=== PATIENT | female | born 1950 | race Caucasian/White ===

== ENCOUNTER 2016-10-17 15:53 | Emergency (ER) | payer OTHER ==
--- NOTE | 2016-10-17 16:04 | CPEKG ---
Heart Rate: 76 RR Interval: 789 P-R Interval: 200 QRSD Interval: 76 QT Interval: 312 QTC Interval: 351 P [place]: 85 QRS [place]: 41 T Wave [place]: 57 EKG Severity - NORMAL ECG - EKG Impression: SINUS RHYTHM Electronically Signed By: Doug Tolentino 17-Oct-2016 23:43:31
[2016-10-17] MEDS ORDERED: ASPIRIN 81 MG CHEWABLE TAB PO ONE (16:09)
[2016-10-17] MEDS ORDERED: NS 1,000 ML IV ONE (16:09)
[2016-10-17 16:10] VITALS: TEMP 98.8
[2016-10-17] MEDS ORDERED: METOPROLOL TARTRATE 5 MG/5 ML INJ ONE (16:10)
[2016-10-17] MEDS ORDERED: METOPROLOL TARTRATE 5 MG/5 ML INJ IVP ONE (16:10)
[2016-10-17] MEDS ORDERED: ASPIRIN 81 MG CHEWABLE TAB ONE (16:10)
[2016-10-17 16:14] LABS: % IMMATURE GRANULYOCYTES 0.2 % (0.0-1.1); ABSOLUTE IMMATURE GRANULOCYTES 0.01 10^3/uL (0.00-0.10); ADD DIFF? NO; ADD MORPH? NO; ADD SCAN? NO; ATYPICAL LYMPHOCYTE FLAG 20 (0-99); FRAGMENT RBC FLAG 0 (0-99); HEMATOCRIT 42.7 % (38.0-47.0); HEMOGLOBIN 14.3 g/dL (12.6-16.3); LEFT SHIFT FLG 0 (0-99); LIPEMIA HEMOLYSIS FLAG 80 (0-99); MEAN CELL HEMOGLOBIN 28.2 pg (27.9-34.1); MEAN CELL HEMOGLOBIN CONCENTR. 33.5 g/dL (32.4-36.7); MEAN CELL VOLUME 84.2 fL (81.5-99.8); MEAN PLATELET VOLUME 10.6 fL (8.7-11.7); PLATELET CLUMPS FLAG 0 (0-99); PLATELET COUNT 235 10^3/uL (150-400); RED BLOOD CELL COUNT 5.07 10^6/uL (4.18-5.33); RED CELL DISTRIBUTION WIDTH 14.9 % (11.5-15.2)
--- NOTE | 2016-10-17 16:24 | UCPHY ---
H & P Patient Type: Established Chief Complaint Nursing Narrative: c/o chills, simon, muscles aches, sent by her MD for evaluation of elevated heart rate Time Seen by Provider: 10/17/16 16:08 HPI/ROS: Dr. Yun Oliva, patient's primary care physician called regarding this patient explaining that the patient presented to our office with flu-like symptoms was found to be tachycardic. An EKG was performed that showed AFib or flutter at a rate of 150. She converted spontaneously without intervention. However given that this has never occurred her before Dr. Yun Oliva center here for further evaluation. The patient relates that while visiting [facility] she developed chills on Saturday, 4 days prior to this visit to our urgent care associated with the mild sore throat and myalgias. She also had subjective fevers that diminished with Tylenol. She has associated nausea and mild headache-frontal location similar prior headaches as well. Finally, she reported a mild dry cough and a burning sensation when she coughed that felt bronchial her. Over the past 2 days she has developed associated fatigue. ROS: Fatigue and fever as noted in HPI. HEENT: No sinus pain. No ear pain. No other complaints pulmonary no pleuritic pain. No dyspnea. Cardiovascular: No anginal pain, she reports that she did noticed heart palpitations until Dr. Oliva mentioned her rapid rhythm at the office visit. She denies any calf pain or swelling.. GI: Nausea but no vomiting. No diarrhea. She is tolerating p.o. intake. : No complaints endocrine: No diaphoresis, heat intolerance cold intolerance. She has not had a TSH checked in some time now. Integumentary: No rash or other skin complaints. 10 point ROS is otherwise negative. Source: Patient, RN/MD Exam Limitations: No limitations (I received a phone call from Dr. Yun Oliva is patient's primary care physician regarding this patient) - Medical/Surgical History PMH: Hypercholesterolemia Hx Asthma: No Hx Chronic Respiratory Disease: No Hx Diabetes: No Hx Cardiac Disease: No Hx Renal Disease: No Hx Cirrhosis: No Hx Alcoholism: No Hx HIV/AIDS: No Hx Splenectomy or Spleen Trauma: No Other PMH: hypothyroid - Family History Significant Family History: Heart disease (Her mother of an OK in her 60s) - Social History Smoking Status: Never smoked Alcohol Use: Rarely Drug Use: None - Physical Exam Exam: Normal vital signs except for intermittent AFib or flutter with accompanied heart rate up to the 160s. Despite that she maintains a blood pressure with systolic greater than 100 General Appearance: Alert, no distress. Eyes: Pupils equal and round no pallor or injection. ENT, Mouth: Mucous membranes moist. Respiratory: Clear to auscultation with no rales rhonchi or wheeze. Cardiovascular: Regular rate and rhythm with intermittent irregularly irregular Gastrointestinal: Abdomen is soft and nontender, no masses, bowel sounds normal. Neurological: Alert with no focal deficits appreciated. Skin: Warm and dry, no rashes. Musculoskeletal: Neck is supple nontender. Extremities are symmetrical, full range of motion. No lower extremity tenderness or swelling. Psychiatric: Mood and affect normal. DIFFERENTIAL DIAGNOSIS: After history and physical exam differential diagnosis was considered for influenza or other viral illness, dehydration, paroxysmal AFib aflutter, rule out metabolic disarray, thyroid disease, pneumonia Constitutional: Initial Vital Signs Temperature (C) 37.1 C 10/17/16 16:08 Heart Rate 80 10/17/16 16:08 Respiratory Rate 20 10/17/16 16:08 Blood Pressure 106/81 H 10/17/16 16:08 O2 Sat (%) 95 10/17/16 16:08 O2 Delivery Mode Room Air O2 (L/minute) 2 Allergies/Adverse Reactions: No Known Allergies Allergy (Verified 07/05/12 12:35) Home Medications: Medication Instructions Recorded Levothyroxine Sodium [Levothroid] 25 mcg PO 07/05/12 Simvastatin 07/18/14 Levalbuterol Inhaler [Xopenex Hfa 2 puffs IH Q4 PRN #1 mdi 10/17/16 Inhaler] Myrbetriq 10/17/16 Medical Decision Making - Diagnostics EKG Interpretation: 12 lead EKG performed upon arrival at 4:01 p.m. reveals sinus rhythm indication heart palpitations Intervals: Normal throughout [place]: Normal throughout ST segments: Normal throughout Overall assessment normal EKG Heart monitor revealed intermittent rapid narrow complex rhythm that appears to be AFib or flutter. Ventricular rates up to 160 briefly I also reviewed EKG does performed the primary care physician's office timed at 3:14 p.m. and that EKG reveals a flutter by my interpretation with a rate of 150. No other abnormalities. Imaging: Chest x-ray: Minimal atelectasis at the base otherwise no interval change from June 2014 chest x-ray by my interpretation. Dr. Garcia, radiologist as that there is mild airway disease. CT angio chest rule out PE is negative for PE. Mild airway disease is noted per Dr. Villarreal-radiologist who read the CT. She also has mild nodules that are unchanged from prior study. ED Course/Re-evaluation: IV normal saline bolus Aspirin 324 Despite her intermittent brief rapid Neuro complex rhythms, the patient maintains normal mental status, good skin color and no hypotension. With saline bolus-1 L rhythm has converted to a sinus rhythm and remained in sinus rhythm for the duration of her urgent care observation-over 2 hours A review of labs shows a normal CBC, normal electrolytes normal TSH. Her D- dimer was mildly elevated. I spoke with Dr. Penaloza, -stuffed casing tier [employer] solution architect for [facility] in consult regarding this patient. Suggests holding on any AV moustapha blocking medications or other new meds for this patient given her stability the clinic after saline bolus. After workup, no evidence of pulmonary embolism, coronary syndrome or other complicating factors. Findings are consistent with a new onset of paroxysmal a flutter/fib in the setting of a viral bronchitis. I counseled the patient regarding this. She improved with treatment and is in a sinus rhythm - Data Points Laboratory Results: Laboratory Results 10/17/16 16:05 10/17/16 16:05 10/17/16 10/17/16 10/17/16 16:20 16:05 16:05 WBC RBC Hgb POC Hgb 15.3 gm/dL gm/dL (12.3-15.9) Hct POC Hct 45 % % (35.5-47.5) MCV MCH MCHC RDW Plt Count MPV Neut % (Auto) Lymph % (Auto) [place] % (Auto) Eos % (Auto) Baso % (Auto) Nucleat RBC Rel Count Absolute Neuts (auto) Absolute Lymphs (auto) Absolute Monos (auto) Absolute Eos (auto) Absolute Basos (auto) Absolute Nucleated RBC Immature Gran % Immature Gran # PT INR APTT D-Dimer POC Sodium 138 mEq/L mEq/L (134-144) Sodium POC Potassium 3.8 mEq/L mEq/L (3.3-5.0) Potassium POC Chloride 103 mEq/L mEq/L (96-108) Chloride Carbon Dioxide Anion Gap POC BUN 8 mg/dL mg/dL (7-23) BUN Creatinine POC Creatinine 0.8 mg/dL mg/dL (0.6-1.2) Estimated GFR Glucose POC Glucose 109 mg/dL H mg/dL (70-100) Calcium Troponin I TSH 1.180 uIU/mL uIU/mL (0.465-4.680) Influenza Typ A,B (DFA) NEGATIVE FOR FLU (NEGATIVE) 10/17/16 10/17/16 10/17/16 16:05 16:05 16:05 WBC 4.68 10^3/uL 10^3/uL (3.80-9.50) RBC 5.07 10^6/uL 10^6/uL (4.18-5.33) Hgb 14.3 g/dL g/dL (12.6-16.3) POC Hgb Hct 42.7 % % (38.0-47.0) POC Hct MCV 84.2 fL fL (81.5-99.8) MCH 28.2 pg pg (27.9-34.1) MCHC 33.5 g/dL g/dL (32.4-36.7) RDW 14.9 % % (11.5-15.2) Plt Count 235 10^3/uL 10^3/uL (150-400) MPV 10.6 fL fL (8.7-11.7) Neut % (Auto) 59.5 % % (39.3-74.2) Lymph % (Auto) 27.4 % % (15.0-45.0) [place] % (Auto) 10.9 % % (4.5-13.0) Eos % (Auto) 1.1 % % (0.6-7.6) Baso % (Auto) 0.9 % % (0.3-1.7) Nucleat RBC Rel Count 0.0 % % (0.0-0.2) Absolute Neuts (auto) 2.79 10^3/uL 10^3/uL (1.70-6.50) Absolute Lymphs (auto) 1.28 10^3/uL 10^3/uL (1.00-3.00) Absolute Monos (auto) 0.51 10^3/uL 10^3/uL (0.30-0.80) Absolute Eos (auto) 0.05 10^3/uL 10^3/uL (0.03-0.40) Absolute Basos (auto) 0.04 10^3/uL 10^3/uL (0.02-0.10) Absolute Nucleated RBC 0.00 10^3/uL 10^3/uL (0-0.01) Immature Gran % 0.2 % % (0.0-1.1) Immature Gran # 0.01 10^3/uL 10^3/uL (0.00-0.10) PT 12.2 SEC SEC (12.0-15.0) INR 0.93 (0.83-1.16) APTT 33.2 SEC SEC (23.0-38.0) D-Dimer 0.53 ug/mLFEU H ug/mLFEU (0.00-0.50) POC Sodium Sodium 137 mEq/L mEq/L (134-144) POC Potassium Potassium 4.0 mEq/L mEq/L (3.5-5.2) POC Chloride Chloride 102 mEq/L mEq/L (97-110) Carbon Dioxide 23 mEq/l mEq/l (22-31) Anion Gap 12 mEq/L mEq/L (8-16) POC BUN BUN 9 mg/dL mg/dL (7-23) Creatinine 0.8 mg/dL mg/dL (0.6-1.0) POC Creatinine Estimated GFR > 60 Glucose 107 mg/dL H mg/dL (70-100) POC Glucose Calcium 9.7 mg/dL mg/dL (8.5-10.4) Troponin I < 0.012 ng/mL ng/mL (0-0.034) TSH Cancelled Influenza Typ A,B (DFA) Medications Given: Discontinued Medications Aspirin (Aspirin) 324 mg PO EDNOW ONE Stop: 10/17/16 16:10 Last Admin: 10/17/16 16:15 Dose: 324 mg Sodium Chloride (Ns) 1,000 mls @ 0 mls/hr IV ONCE ONE PRN Reason: Wide Open Stop: 10/17/16 16:10 Last Admin: 10/17/16 16:05 Dose: 1,000 mls Metoprolol Tartrate (Lopressor Injection) 5 mg IVP EDNOW ONE Stop: 10/17/16 16:11 Last Admin: 10/17/16 19:28 Dose: Not Given Point of Care Test Results: 10/17/16 16:05 POC Sodium 138 POC Potassium 3.8 POC Chloride 103 POC BUN 8 POC Creatinine 0.8 POC Glucose 109 H Departure - Departure Disposition: Home, Routine, Self-Care Clinical Impression: Paroxysmal atrial flutter, Viral bronchitis Condition: Good Instructions: Atrial Flutter (ED), Acute Bronchitis (ED) Additional Instructions: Diagnosis: Paroxysmal A flutter/fib resolved to a sinus rhythm 2. Viral bronchitis Plan: Drink plenty fluids Guaifenesin Humidifier Xopenex inhaler if needed for cough or wheeze or shortness of breath Dr. Penaloza-stuffed casing tier with [facility] office will call you tomorrow after 8: 00 a.m. to arrange for a follow-up appointment for tomorrow for further evaluation. Go to the emergency department if he develops racing heart, lightheadedness, chest pain or other concerning symptoms Referrals: Shantelle Oliva MD [Primary Care Provider] - As per Instructions Werner Penaloza MD [Medical Doctor] - As per Instructions Prescriptions: Levalbuterol Inhaler [Xopenex Hfa Inhaler] 2 puffs IH Q4 PRN #1 mdi PRN Reason: Wheezing - PQRS PQRS Measurement: 134: Depression screening and followup, PRIME MD-PHQ2 (12 years and older) Over the last 2 weeks, how often have you been bothered by any of the following problems? 1. Feeling down, depressed, or hopeless? 2. Little interest or pleasure in doing things? Patient answered no to both 1 and 2 130: Documentation of medications. Reviewed all patient medications, doses, route and frequency. 226: Do you smoke? [No.] 47: 65 and older: Advanced care planning. Patient designates surrogate decision maker as spouse 51: 18 years old and older with diagnosis of COPD, spirometry performance. NA 52: 18 years old and older with COPD and symptoms of COPD or FEV1<60% predicted prescribed a B Agonist. NA
[2016-10-17 16:26] LABS: INR 0.93 (0.83-1.16); PROTIME(PATIENT) 12.2 SEC (12.0-15.0)
[2016-10-17 16:27] LABS: APTT 33.2 SEC (23.0-38.0)
[2016-10-17 16:40] LABS: TROPONIN I < 0.012 ng/mL (0-0.034)
[2016-10-17 16:50] LABS: ANION GAP 12 mEq/L (8-16); CALCIUM 9.7 mg/dL (8.5-10.4); CARBON DIOXIDE 23 mEq/l (22-31); CHLORIDE 102 mEq/L (97-110); CREATININE 0.8 mg/dL (0.6-1.0); GLOMERULAR FILTRATION RATE > 60; GLUCOSE 107 mg/dL (70-100); SODIUM 137 mEq/L (134-144)
[2016-10-17 19:37] VITALS: BP 107/71; PULSE 69; RESP 18; O2SAT 96
== END 2016-10-17 19:37 | disposition home or self-care (01) ==
LOC: CED 15:53
DX: I48.0 Paroxysmal atrial fibrillation (principal); J20.8 Acute bronchitis due to other specified organisms; E78.5 Hyperlipidemia, unspecified; E03.9 Hypothyroidism, unspecified; Z82.49 Family history of ischemic heart disease and other diseases of the circulatory system
CPT/HCPCS: 71020-PO; 71275-PO; 80048-PO; 82947-QW; 84443-PO; 84484-PO; 85025-PO; 85378-PO; 85610-PO; 85730-PO; 87400-PO; 93010-PO; 96360-PO; 99215-PO; G0463-PO

== ENCOUNTER → 2016-10-24 | Outpatient (CLI) | payer OTHER | LOC: CIMAGING 14:50 | DX: Z12.31 Encounter for screening mammogram for malignant neoplasm of breast (principal); Z80.3 Family history of malignant neoplasm of breast | CPT/HCPCS: G0202 ==

== ENCOUNTER → 2016-11-14 | Outpatient (CLI) | payer OTHER | LOC: FIMAGING 14:47 | PROVIDERS: ATTEND Internal Medicine | DX: Z13.820 Encounter for screening for osteoporosis (principal); M85.80 Other specified disorders of bone density and structure, unspecified site; E07.9 Disorder of thyroid, unspecified; Z78.0 Asymptomatic menopausal state; Z82.62 Family history of osteoporosis; Z98.1 Arthrodesis status; Z90.710 Acquired absence of both cervix and uterus ==